=== PATIENT | female | born 1970 | race Caucasian/White ===

== ENCOUNTER 2017-02-09 22:42 | Emergency (ER) | payer SELFPAY ==
--- NOTE | 2017-02-10 03:37 | ED CLINICAL REPORT ---
Clinical Report - Physicians/Mid Levels [facility] [address] [place] [address] 02/09/2017 22:43 Patient: NICOLETTE MENDOSA Time Seen: 23:45; initial patient contact. Arrived- By private vehicle. Historian- patient. HISTORY OF PRESENT ILLNESS Chief Complaint: LOWER EXTREMITY SWELLING. Severity is described as being moderate. It has become recently worse. The quality is noted to be burning. No radiation. This started several weeks ago and is still present (worse worse since since 2 days ago). It was gradual in onset. Symptoms located in the area of the right leg and left leg. The patient has had redness and swelling. She has had difficulty walking. No bladder dysfunction, bowel dysfunction, sensory loss or motor loss. Patient denies an injury. Similar symptoms previously: None. Recent medical care: Not recently seen/assessed. REVIEW OF SYSTEMS No chest pain, difficulty breathing or fever. All systems otherwise negative, except as recorded above. PAST HISTORY ( HTN Edema). Medications: Lasix Oral. Gabapentin Oral. Lisinopril Oral. SOCIAL HISTORY Never smoker. Occasional alcohol use. No drug use. ADDITIONAL NOTES The nursing notes have been reviewed. PHYSICAL EXAM Vital Signs: 02/09/2017 23:50 BP: 126/65. HR: 74. RR: 13. O2 saturation: 95%. Temp: 97.8 F. Pain level now: 8/10. Have been reviewed as normal. Appearance: Alert. Oriented X3. No acute distress. Neck: Normal inspection. No JVD. CVS: Normal heart rate and rhythm. Heart sounds normal. Respiratory: No respiratory distress. Breath sounds normal. Skin: Skin warm and dry. Extremities: Bilateral 2+ pitting edema of the lower extremities involving both lower legs. Neuro: Oriented X 3. LABS, X-RAYS, AND EKG Laboratory Tests: CBC w Diff: (RADHA: 02/10/2017 00:33) ( MsgRcvd 02/10/2017 00:43) Final results Test Result Flag Units (Reference) WHITE BLOOD COUNT 5.2 K/uL (4.5-11.5) RED BLOOD COUNT 3.16 L M/uL (4.00-5.20) HEMOGLOBIN 10.4 L gm/dL (12.0-16.0) HEMATOCRIT 31.0 L % (36.0-46.0) MEAN CELL VOLUME 98 fL (80-100) MEAN CORPUSCULAR HGB 33 pg (26-34) MEAN CORPUSCULAR HGB CONC 34 g/dL (31-37) RED CELL DISTRIBUTION WIDTH 21.6 H % (11.6-14.8) PLATELET COUNT 283 K/uL (150-400) NEUTROPHIL % 60.3 % (50-75) LYMPH % 28.3 % (25-40) MONO % 7.6 % (3-14) EOSINOPHIL % 3.2 % (0-4) BASOPHIL % 0.6 % (0-2) [id number]: (RADHA: 02/10/2017 00:33) ( [facility] 02/10/2017 00:53) Final results Test Result Flag Units (Reference) D-DIMER QUANTITATIVE 0.33 ug/mLFEU (0.27-0.52) The primary value of this quantitative assay relates toits negative predictive value (i.e. exclusion) of pulmonaryembolism/deep vein thrombosis/DIC.Elevated levels of d-dimer may also occur with:, age, cancer, inflammation, liver disease,post-op, infection, hematoma, coronary disease, peripheralarteriopathy, bleeding disorders and thrombolytic treatment.Results should be correlated with other clinical andradiological data.Testing Methodology: Latex Immunoassay BNP: (RADHA: 02/10/2017 00:33) ( [facility] 02/10/2017 01:02) Final results Test Result Flag Units (Reference) B-TYPE NATRIURETIC PEPTIDE 34.7 pg/ml (5-100) CMP: (RADHA: 02/10/2017 00:33) ( [facility] 02/10/2017 00:58) Final results Test Result Flag Units (Reference) GLUCOSE 80 mg/dL (70-110) BUN 8 mg/dL (7-18) CREATININE 0.7 mg/dL (0.6-1.3) Estimated GFR >60 mL/min Estimated GFR- >60 mL/min Note: Persistent reduction over 3 months in eGFR<60 mL/min/1.73 m2 defines CKD. Patients with eGFR values>=60 mL/min/1.73 m2 may also have CKD if evidence ofpersistent proteinuria. Additional information may be foundat www.kidney.org. SODIUM 140 mmol/L (136-145) POTASSIUM 2.8 *L mmol/L (3.5-5.1) CRITICAL RESULTS CALLEDCalled to ELLIOTT CHURCHILL RN 02/10/17 0057Were 2 patient identifiers used? YWas the result read back? Y CHLORIDE 100 mmol/L (98-107) CARBON DIOXIDE 31 mmol/L (21-32) CALCIUM 8.1 L mg/dL (8.5-10.1) TOTAL PROTEIN 6.7 g/dL (6.4-8.2) ALBUMIN 3.2 L g/dL (3.3-5.0) BILIRUBIN, TOTAL 0.4 mg/dL (0.0-1.0) ALKALINE PHOSPHATASE 126 H U/L (46-116) AST (SGOT) 27 U/L (15-37) ALT (SGPT) 27 U/L (12-78) MAGNESIUM 1.9 mg/dL (1.8-2.4) . PROGRESS AND PROCEDURES Disposition: Discharged home in good and improved condition. Condition: good. CLINICAL IMPRESSION Bilateral pedal edema secondary to unknown cause. Hypokalemia INSTRUCTIONS Apply ice. Warnings: CONTROLLED SUBSTANCE WARNINGS. Your Current Medications: CONTINUE TAKING THE FOLLOWING MEDICATIONS: Gabapentin Oral. Lasix Oral. Lisinopril Oral. Prescription Medications: Potassium Chloride 20 mEq: take 1 orally every 24 hours - Dispense twenty (20) No refills. Follow-up: Follow up with your doctor in about two days. Call for an appointment. Blood pressure screening was not performed during this visit because the patient has an active diagnosis of hypertension. (Electronically signed by Jan Cintron Dr. 02/10/2017 5:49)
--- NOTE | 2017-02-10 03:37 | ED CLINICAL REPORT ---
Clinical Report - Physicians/Mid Levels [facility] [address] [place] [address] 02/09/2017 22:43 Patient: NICOLETTE MENDOSA Time Seen: 23:45; initial patient contact. Arrived- By private vehicle. Historian- patient. HISTORY OF PRESENT ILLNESS Chief Complaint: LOWER EXTREMITY SWELLING. Severity is described as being moderate. It has become recently worse. The quality is noted to be burning. No radiation. This started several weeks ago and is still present (worse worse since since 2 days ago). It was gradual in onset. Symptoms located in the area of the right leg and left leg. The patient has had redness and swelling. She has had difficulty walking. No bladder dysfunction, bowel dysfunction, sensory loss or motor loss. Patient denies an injury. Similar symptoms previously: None. Recent medical care: Not recently seen/assessed. REVIEW OF SYSTEMS No chest pain, difficulty breathing or fever. All systems otherwise negative, except as recorded above. PAST HISTORY ( HTN Edema). Medications: Lasix Oral. Gabapentin Oral. Lisinopril Oral. SOCIAL HISTORY Never smoker. Occasional alcohol use. No drug use. ADDITIONAL NOTES The nursing notes have been reviewed. PHYSICAL EXAM Vital Signs: 02/09/2017 23:50 BP: 126/65. HR: 74. RR: 13. O2 saturation: 95%. Temp: 97.8 F. Pain level now: 8/10. Have been reviewed as normal. Appearance: Alert. Oriented X3. No acute distress. Neck: Normal inspection. No JVD. CVS: Normal heart rate and rhythm. Heart sounds normal. Respiratory: No respiratory distress. Breath sounds normal. Skin: Skin warm and dry. Extremities: Bilateral 2+ pitting edema of the lower extremities involving both lower legs. Neuro: Oriented X 3. LABS, X-RAYS, AND EKG Laboratory Tests: CBC w Diff: (RADHA: 02/10/2017 00:33) ( MsgRcvd 02/10/2017 00:43) Final results Test Result Flag Units (Reference) WHITE BLOOD COUNT 5.2 K/uL (4.5-11.5) RED BLOOD COUNT 3.16 L M/uL (4.00-5.20) HEMOGLOBIN 10.4 L gm/dL (12.0-16.0) HEMATOCRIT 31.0 L % (36.0-46.0) MEAN CELL VOLUME 98 fL (80-100) MEAN CORPUSCULAR HGB 33 pg (26-34) MEAN CORPUSCULAR HGB CONC 34 g/dL (31-37) RED CELL DISTRIBUTION WIDTH 21.6 H % (11.6-14.8) PLATELET COUNT 283 K/uL (150-400) NEUTROPHIL % 60.3 % (50-75) LYMPH % 28.3 % (25-40) MONO % 7.6 % (3-14) EOSINOPHIL % 3.2 % (0-4) BASOPHIL % 0.6 % (0-2) [id number]: (RADHA: 02/10/2017 00:33) ( [facility] 02/10/2017 00:53) Final results Test Result Flag Units (Reference) D-DIMER QUANTITATIVE 0.33 ug/mLFEU (0.27-0.52) The primary value of this quantitative assay relates toits negative predictive value (i.e. exclusion) of pulmonaryembolism/deep vein thrombosis/DIC.Elevated levels of d-dimer may also occur with:, age, cancer, inflammation, liver disease,post-op, infection, hematoma, coronary disease, peripheralarteriopathy, bleeding disorders and thrombolytic treatment.Results should be correlated with other clinical andradiological data.Testing Methodology: Latex Immunoassay BNP: (RADHA: 02/10/2017 00:33) ( [facility] 02/10/2017 01:02) Final results Test Result Flag Units (Reference) B-TYPE NATRIURETIC PEPTIDE 34.7 pg/ml (5-100) CMP: (RADHA: 02/10/2017 00:33) ( [facility] 02/10/2017 00:58) Final results Test Result Flag Units (Reference) GLUCOSE 80 mg/dL (70-110) BUN 8 mg/dL (7-18) CREATININE 0.7 mg/dL (0.6-1.3) Estimated GFR >60 mL/min Estimated GFR- >60 mL/min Note: Persistent reduction over 3 months in eGFR<60 mL/min/1.73 m2 defines CKD. Patients with eGFR values>=60 mL/min/1.73 m2 may also have CKD if evidence ofpersistent proteinuria. Additional information may be foundat www.kidney.org. SODIUM 140 mmol/L (136-145) POTASSIUM 2.8 *L mmol/L (3.5-5.1) CRITICAL RESULTS CALLEDCalled to ELLIOTT CHURCHILL RN 02/10/17 0057Were 2 patient identifiers used? YWas the result read back? Y CHLORIDE 100 mmol/L (98-107) CARBON DIOXIDE 31 mmol/L (21-32) CALCIUM 8.1 L mg/dL (8.5-10.1) TOTAL PROTEIN 6.7 g/dL (6.4-8.2) ALBUMIN 3.2 L g/dL (3.3-5.0) BILIRUBIN, TOTAL 0.4 mg/dL (0.0-1.0) ALKALINE PHOSPHATASE 126 H U/L (46-116) AST (SGOT) 27 U/L (15-37) ALT (SGPT) 27 U/L (12-78) MAGNESIUM 1.9 mg/dL (1.8-2.4) . PROGRESS AND PROCEDURES Disposition: Discharged home in good and improved condition. Condition: good. CLINICAL IMPRESSION Bilateral pedal edema secondary to unknown cause. Hypokalemia INSTRUCTIONS Apply ice. Warnings: CONTROLLED SUBSTANCE WARNINGS. Your Current Medications: CONTINUE TAKING THE FOLLOWING MEDICATIONS: Gabapentin Oral. Lasix Oral. Lisinopril Oral. Prescription Medications: Potassium Chloride 20 mEq: take 1 orally every 24 hours - Dispense twenty (20) No refills. Follow-up: Follow up with your doctor in about two days. Call for an appointment. Blood pressure screening was not performed during this visit because the patient has an active diagnosis of hypertension. (Electronically signed by Jan Cintron Dr. 02/10/2017 5:49)
--- NOTE | 2017-02-10 03:37 | ED ORDER SUMMARY ---
..... Patient: NICOLETTE MENDOSA OrderSheet [facility] VisitID: [id number] [place] [address] 47y, F Registration Date/Time: 02/09/2017 ORDER SHEET Weight: 104.3 kg (stated) Allergies: None GENERAL ORDERS: Chest 1V Urgent (00:02/10/2017 Emory Lopez) (Ack 0:17 CHagerty ER Watch Mechanic) (0:57 RFay) CBC w Diff Urgent (00:02/10/2017 Emory Lopez) (Ack 0:17 CHagerty ER Watch Mechanic) (Collected 0:37 RMarsden R.N.) (1:04 CHagerty ER Watch Mechanic) CMP Urgent (00:02/10/2017 Emory Lopez) (Ack 0:17 CHagerty ER Watch Mechanic) (Collected 0:37 RMarsden R.N.) (1:04 CHagerty ER Watch Mechanic) BNP Urgent (00:02/10/2017 Emory Lopez) (Ack 0:17 CHagerty ER Watch Mechanic) (Collected 0:37 RMarsden R.N.) (1:04 CHagerty ER Watch Mechanic) D-Dimer Urgent (00:02/10/2017 Emory Lopez) (Ack 0:17 CHagerty ER Watch Mechanic) (Collected 0:37 RMarsden R.N.) (1:04 CHagerty ER Watch Mechanic) MEDICATION ORDERS: Potassium Chloride PO 20 meq (NOW) (01:36 02/10/2017 Emory Lopez) (Ack 1:42 RMarsden R.N.) (2:24 RMarsden R.N.) IV FLUIDS: Toradol IV 30 mg (NOW) (00:15 02/10/2017 Eomry Lopez) (Ack 0:17 RMarsden R.N.) (0:37 RMarsden R.N.) IV Saline Lock (00:02/10/2017 Emory Lopez) (Ack 0:17 RMarsden R.N.) (0:36 RMarsden R.N.) Potassium Chloride IV 20 meq/100mL (HIGH ALERT MEDICATION, NOW, Run no faster than 10 mEq/hr) (01:36 02/10/2017 Emory Lopez) (Ack 1:42 RMarstierney R.N.) (2:24 RMdane R.N.) ORDER SHEET NOTES: [Electronically signed by Jan Cintron Dr. (05:49 02/10/2017)] [Electronically signed by Radha Gallardo R.N. (06:22 02/10/2017)] [Electronically locked/signed by Radha Gallardo R.N. (06:22 02/10/2017)]
--- NOTE | 2017-02-10 03:37 | ED NURSING NOTES ---
Clinical Report - Nurses [facility] [address] [place] [address] 02/09/2017 22:43 Patient: NICOLETTE MENDOSA TRIAGE Triage time 23:41. Acuity: LEVEL 3. Chief Complaint: RIGHT LOWER EXTREMITY PAIN, SWELLING and REDNESS. LEFT LOWER EXTREMITY PAIN, SWELLING and REDNESS. 23:55 02/09/17. Alert. No acute distress. SEPSIS SCREEN: Sepsis Screen. Negative (no infection suspected/documented). MIKE COMA SCORE: [place] Coma Scale: 15- eyes open spontaneously (4); best verbal response- oriented x 4 (5); best motor response- obeys commands (6). --23:55 Radha Gallardo R.N. 23:50 02/09/17. BP: 126/65. HR: 74. RR: 13. O2 saturation: 95%. Temp: 97.8 F. Pain level now: 03/13. --23:55 Radha Gallardo R.N. Weight: 104.3 kg stated. Height/Length: 65 inches Per Patient. BMI: 38.3. --23:55 Radha Gallardo R.N. Medications Lisinopril Oral. --03:[address] Gabapentin Oral. --03:[address] Lasix Oral. --03:[address] Allergies None. --06:22 Radha Gallardo R.N. History Historian: patient. Primary physician ([facility]. PCP told pt to come to the hospital two days ago). This occurred (two days ago). ( Patient states she has had leg swelling "for a long time," but the pain and swelling has gotten worse in the past two days. She states she has been on furosemide to pull the water off, and recently increased her dosage with no improvement.). She has had trouble walking. PAST MEDICAL HX: Tetanus status: up-to-date. Immunizations: up-to-date. Denies current . SOCIAL HX: Never smoker. Occasional alcohol use. No drug use. FALL RISK ASSESSMENT: Fall risk assessment completed. No fall risk identified. NUTRITIONAL RISK ASSESSMENT: The nutritional risk assessment revealed no deficiencies. FUNCTIONAL ASSESSMENT: Functional assessment: no impairments noted. LEARNING NEEDS ASSESSMENT: The learning needs assessment revealed no barriers. SKIN INTEGRITY ASSESSMENT: Skin integrity risk assessment completed. No skin integrity risk identified. --23:55 Rahda Gallardo R.N. Interventions ID band on patient. To treatment room. --23:55 Radha Gallardo R.N. PHYSICAL ASSESSMENT 23:57 02/09/17. Ambulatory to room. GENERAL / NEURO / PSYCH: Oriented X 4. Alert. Appears in no acute distress. EXTREMITIES: Clear drainage on the extremities (L Leg). Bilateral 2+ non-pitting edema of the lower extremities involving both lower legs. Extremity pulses are within normal limits. Extremities exhibit normal ROM. Right leg: tenderness, swelling and erythema. Left leg: tenderness, swelling and erythema. ( limping due to pain). SKIN: Skin intact. Skin is warm. --23:57 Radha Gallardo R.N. NURSING PROGRESS NOTES 23:57 02/09/17. Two patient identifiers checked. Call light placed in reach. Side rails up x 1. Bed placed in lowest position. Brakes of bed on. Patient ready for evaluation- chart flagged and notification provided. --23:57 Radha Gallardo R.N. 00:31 02/10/2017 Site #1 started via IV in the right antecubital space with an 20g angiocath; one attempt. Blood drawn: rainbow set and pediatric tubes. Labeled in the presence of the patient and sent to the lab. Saline lock flushed with 5 mL saline. --00:36 Radha Gallardo R.N. 00:37 02/10/2017 Toradol IVP 30 mg given over 2 minute(s) via site #1. Allergies verified and confirmed 5 rights. IV patency established. IV site checked: no pain, redness, or swelling. IV flushed thoroughly pre- and post-medication administration. IVP given by RN. --00:37 Radah Gallardo R.N. 00:59. Critical value relayed to ED by [employer] tech. Critical value received by Luigi ABBASI. K: 2.8. Critical value read back. Verified lab result and patient ID. ED physician notifed of critical value. --00:59 Luigi Gomez R.N. 02:09 02/10/2017 Potassium Chloride (Potassium Chloride ER) PO Tablets 20 meq given. Allergies verified and confirmed 5 rights. --02:24 Radha Gallardo R.N. 02:19 02/10/2017 Started 20 meq of Potassium Chloride (Potassium Chloride) IVPB in bag #1 100 mL; at 40 mL/hr over 2.5 hour(s) via site #1 via IV pump. Allergies verified and confirmed 5 rights. IV patency established. IV site checked: no pain, redness, or swelling. IV flushed thoroughly pre- and post-medication administration. Completed per protocol. --02:24 Radha Gallardo R.N. 03:06 Patient assisted to restroom and back to bed. --03:10 Luigi Gomez R.N. Cardiac rhythm: sinus rhythm. The patient is calm and resting quietly. GENERAL / NEURO / PSYCH: Alert. Oriented X 4. RESPIRATORY: No respiratory distress. SKIN: Skin is warm and dry. --03:11 Luigi Gomez R.N. 03:11 02/10/17. BP: 106/61. HR: 80. RR: 16. O2 saturation: 96%. --03:11 Luigi Gomez R.N. ( patient given phone [phone]). --05:00 Radha Gallardo R.N. DISPOSITION / DISCHARGE 05:12. No learning barriers present. Discharge instructions provided and reviewed with the patient. Reviewed warnings. Reviewed medication(s). Treatments reviewed. Reviewed referrals. Patient verbalized understanding. Written instructions provided in Mongolian. The patient was discharged home. She left the Emergency Department ambulatory and via private vehicle. Spouse driving. --06:21 Radha Gallardo R.N. 04:50 02/10/17. BP: 107/65. HR: 68. RR: 11. O2 saturation: 97%. Temp: deferred. Pain level now: 03/13. --06:21 Radha Gallardo R.N. Locked/Released at 02/10/2017 6:22 by Radha Gallardo R.N.
--- NOTE | 2017-02-10 03:37 | ED ORDER SUMMARY ---
..... Patient: NICOLETTE MENDOSA OrderSheet [facility] VisitID: [id number] [place] [address] 47y, F Registration Date/Time: 02/09/2017 ORDER SHEET Weight: 104.3 kg (stated) Allergies: None GENERAL ORDERS: Chest 1V Urgent (00:02/10/2017 Emory Lopez) (Ack 0:17 CHagerty ER Industrial Cleaner) (0:57 RFay) CBC w Diff Urgent (00:02/10/2017 Eomry Lopez) (Ack 0:17 CHagerty ER Industrial Cleaner) (Collected 0:37 RMarsden R.N.) (1:04 CHagerty ER Industrial Cleaner) CMP Urgent (00:02/10/2017 Emory Lopez) (Ack 0:17 CHagerty ER Industrial Cleaner) (Collected 0:37 RMarsden R.N.) (1:04 CHagerty ER Industrial Cleaner) BNP Urgent (00:02/10/2017 Emory Lopez) (Ack 0:17 CHagerty ER Industrial Cleaner) (Collected 0:37 RMarsden R.N.) (1:04 CHagerty ER Industrial Cleaner) D-Dimer Urgent (00:02/10/2017 Emory Lopez) (Ack 0:17 CHagerty ER Industrial Cleaner) (Collected 0:37 RMarsden R.N.) (1:04 CHagerty ER Industrial Cleaner) MEDICATION ORDERS: Potassium Chloride PO 20 meq (NOW) (01:36 02/10/2017 Emory Lopez) (Ack 1:42 RMarsden R.N.) (2:24 RMarsden R.N.) IV FLUIDS: Toradol IV 30 mg (NOW) (00:15 02/10/2017 Emory Lopez) (Ack 0:17 RMarsden R.N.) (0:37 RMarsden R.N.) IV Saline Lock (00:02/10/2017 Emory Lopez) (Ack 0:17 RMarsden R.N.) (0:36 RMarsden R.N.) Potassium Chloride IV 20 meq/100mL (HIGH ALERT MEDICATION, NOW, Run no faster than 10 mEq/hr) (01:36 02/10/2017 Emory Lopez) (Ack 1:42 RMarstierney R.N.) (2:24 RMdane R.N.) ORDER SHEET NOTES: [Electronically signed by Jan Cintron Dr. (05:49 02/10/2017)] [Electronically signed by Radha Gallardo R.N. (06:22 02/10/2017)] [Electronically locked/signed by Radha Gallardo R.N. (06:22 02/10/2017)]
--- NOTE | 2017-02-10 03:37 | ED NURSING NOTES ---
Clinical Report - Nurses [facility] [address] [place] [address] 02/09/2017 22:43 Patient: NICOLETTE MENDOSA TRIAGE Triage time 23:41. Acuity: LEVEL 3. Chief Complaint: RIGHT LOWER EXTREMITY PAIN, SWELLING and REDNESS. LEFT LOWER EXTREMITY PAIN, SWELLING and REDNESS. 23:55 02/09/17. Alert. No acute distress. SEPSIS SCREEN: Sepsis Screen. Negative (no infection suspected/documented). MIKE COMA SCORE: [place] Coma Scale: 15- eyes open spontaneously (4); best verbal response- oriented x 4 (5); best motor response- obeys commands (6). --23:55 Radha aGllardo R.N. 23:50 02/09/17. BP: 126/65. HR: 74. RR: 13. O2 saturation: 95%. Temp: 97.8 F. Pain level now: 03/13. --23:55 Radha Gallardo R.N. Weight: 104.3 kg stated. Height/Length: 65 inches Per Patient. BMI: 38.3. --23:55 Radha Gallardo R.N. Medications Lisinopril Oral. --03:[address] Gabapentin Oral. --03:[address] Lasix Oral. --03:[address] Allergies None. --06:22 Radha Gallardo R.N. History Historian: patient. Primary physician ([facility]. PCP told pt to come to the hospital two days ago). This occurred (two days ago). ( Patient states she has had leg swelling "for a long time," but the pain and swelling has gotten worse in the past two days. She states she has been on furosemide to pull the water off, and recently increased her dosage with no improvement.). She has had trouble walking. PAST MEDICAL HX: Tetanus status: up-to-date. Immunizations: up-to-date. Denies current . SOCIAL HX: Never smoker. Occasional alcohol use. No drug use. FALL RISK ASSESSMENT: Fall risk assessment completed. No fall risk identified. NUTRITIONAL RISK ASSESSMENT: The nutritional risk assessment revealed no deficiencies. FUNCTIONAL ASSESSMENT: Functional assessment: no impairments noted. LEARNING NEEDS ASSESSMENT: The learning needs assessment revealed no barriers. SKIN INTEGRITY ASSESSMENT: Skin integrity risk assessment completed. No skin integrity risk identified. --23:55 Radha Gallardo R.N. Interventions ID band on patient. To treatment room. --23:55 Radha Gallardo R.N. PHYSICAL ASSESSMENT 23:57 02/09/17. Ambulatory to room. GENERAL / NEURO / PSYCH: Oriented X 4. Alert. Appears in no acute distress. EXTREMITIES: Clear drainage on the extremities (L Leg). Bilateral 2+ non-pitting edema of the lower extremities involving both lower legs. Extremity pulses are within normal limits. Extremities exhibit normal ROM. Right leg: tenderness, swelling and erythema. Left leg: tenderness, swelling and erythema. ( limping due to pain). SKIN: Skin intact. Skin is warm. --23:57 Radah Gallardo R.N. NURSING PROGRESS NOTES 23:57 02/09/17. Two patient identifiers checked. Call light placed in reach. Side rails up x 1. Bed placed in lowest position. Brakes of bed on. Patient ready for evaluation- chart flagged and notification provided. --23:57 Radha Gallardo R.N. 00:31 02/10/2017 Site #1 started via IV in the right antecubital space with an 20g angiocath; one attempt. Blood drawn: rainbow set and pediatric tubes. Labeled in the presence of the patient and sent to the lab. Saline lock flushed with 5 mL saline. --00:36 Radha Gallardo R.N. 00:37 02/10/2017 Toradol IVP 30 mg given over 2 minute(s) via site #1. Allergies verified and confirmed 5 rights. IV patency established. IV site checked: no pain, redness, or swelling. IV flushed thoroughly pre- and post-medication administration. IVP given by RN. --00:37 Radha Gallardo R.N. 00:59. Critical value relayed to ED by [employer] tech. Critical value received by Luigi ABBASI. K: 2.8. Critical value read back. Verified lab result and patient ID. ED physician notifed of critical value. --00:59 Luigi Gomez R.N. 02:09 02/10/2017 Potassium Chloride (Potassium Chloride ER) PO Tablets 20 meq given. Allergies verified and confirmed 5 rights. --02:24 Radha Gallardo R.N. 02:19 02/10/2017 Started 20 meq of Potassium Chloride (Potassium Chloride) IVPB in bag #1 100 mL; at 40 mL/hr over 2.5 hour(s) via site #1 via IV pump. Allergies verified and confirmed 5 rights. IV patency established. IV site checked: no pain, redness, or swelling. IV flushed thoroughly pre- and post-medication administration. Completed per protocol. --02:24 Radha Gallardo R.N. 03:06 Patient assisted to restroom and back to bed. --03:10 Luigi Gomez R.N. Cardiac rhythm: sinus rhythm. The patient is calm and resting quietly. GENERAL / NEURO / PSYCH: Alert. Oriented X 4. RESPIRATORY: No respiratory distress. SKIN: Skin is warm and dry. --03:11 Luigi Gomez R.N. 03:11 02/10/17. BP: 106/61. HR: 80. RR: 16. O2 saturation: 96%. --03:11 Luigi Gomez R.N. ( patient given phone [phone]). --05:00 Radha Gallardo R.N. DISPOSITION / DISCHARGE 05:12. No learning barriers present. Discharge instructions provided and reviewed with the patient. Reviewed warnings. Reviewed medication(s). Treatments reviewed. Reviewed referrals. Patient verbalized understanding. Written instructions provided in Frisian. The patient was discharged home. She left the Emergency Department ambulatory and via private vehicle. Spouse driving. --06:21 Radha Gallardo R.N. 04:50 02/10/17. BP: 107/65. HR: 68. RR: 11. O2 saturation: 97%. Temp: deferred. Pain level now: 03/13. --06:21 Radha Gallardo R.N. Locked/Released at 02/10/2017 6:22 by Radha Gallardo R.N.
--- NOTE | 2017-02-10 06:22 | ED MED RECONCILIATION SUMMARY ---
Patient: NICOLETTE MENDOSA Medication Reconciliation Report [facility] VisitID: [id number] [address] [place] [address] 47y, F Registration Date/Time: 02/09/2017 Weight: 104.3 kg Height/Length: 65 in. BMI: 38.3 ALLERGIES: None The patient's Home Medications are listed below: CONTINUE TAKING THE FOLLOWING MEDICATIONS: Gabapentin Oral Lasix Oral Lisinopril Oral The source(s) of the original Home Medication information: Not obtained. The following Medications were given to the patient in the Emergency Department: Toradol [IVP] IVP 30 mg, administered: 02/10/2017 12:37:00 AM Potassium Chloride [IVPB] IVPB bolus 0, then 20 meq 40 mL/hr, administered: 02/10/2017 2:19:00 AM Potassium Chloride [PO] PO 20 meq, administered: 02/10/2017 2:09:00 AM The following Medications were prescribed to the patient: Potassium Chloride 20 mEq: take 1 orally every 24 hours - Dispense twenty (20) No refills. -- Jan Cintron Dr.
--- NOTE | 2017-02-10 06:22 | ED MED RECONCILIATION SUMMARY ---
Patient: NICOLETTE MENDOSA Medication Reconciliation Report [facility] VisitID: [id number] [address] [place] [address] 47y, F Registration Date/Time: 02/09/2017 Weight: 104.3 kg Height/Length: 65 in. BMI: 38.3 ALLERGIES: None The patient's Home Medications are listed below: CONTINUE TAKING THE FOLLOWING MEDICATIONS: Gabapentin Oral Lasix Oral Lisinopril Oral The source(s) of the original Home Medication information: Not obtained. The following Medications were given to the patient in the Emergency Department: Toradol [IVP] IVP 30 mg, administered: 02/10/2017 12:37:00 AM Potassium Chloride [IVPB] IVPB bolus 0, then 20 meq 40 mL/hr, administered: 02/10/2017 2:19:00 AM Potassium Chloride [PO] PO 20 meq, administered: 02/10/2017 2:09:00 AM The following Medications were prescribed to the patient: Potassium Chloride 20 mEq: take 1 orally every 24 hours - Dispense twenty (20) No refills. -- Jan Cintron Dr.
--- NOTE | 2017-02-10 06:22 | ED DISCHARGE INSTRUCTIONS ---
Patient: NICOLETTE MENDOSA General Instructions [facility] VisitID: [id number] [place] [address] 47y, F Registration Date/Time: 02/09/2017 Bilateral pedal edema secondary to unknown cause. Hypokalemia INSTRUCTIONS Apply ice. Warnings: CONTROLLED SUBSTANCE WARNINGS. Your Current Medications: CONTINUE TAKING THE FOLLOWING MEDICATIONS: Gabapentin Oral. Lasix Oral. Lisinopril Oral. Prescription Medications: Potassium Chloride 20 mEq: take 1 orally every 24 hours - Dispense twenty (20) No refills. Follow-up: Follow up with your doctor in about two days. Call for an appointment. Blood pressure screening was not performed during this visit because the patient has an active diagnosis of hypertension. ADDITIONAL INFORMATION Leg Swelling [Bilateral] Swelling of the feet, ankles and legs is called "Edema." It is due to excess fluid collecting in the tissues. Because of gravity, excess fluid in the body settles in the lowest part. This is why the legs and feet are most affected. Some of the causes for edema include: Disease of the heart (congestive heart failure or "CHF") Prolonged standing or sitting (with the legs in the down position) Infection of the feet or legs Venous Insufficiency (congestion of blood in the veins of the legs) Varicose veins (dilated veins of the lower leg) Garters, or clothing that constricts your legs. (These will cause venous congestion by restricting blood flow.) Some medicines (hormones such as control pills; some blood pressure medicines, such as calcium channel blockers; steroids; some antidepressants such as MAO inhibitors and tricyclics.) Menstrual periods with fluid retention Renal insufficiency (a form of kidney disease) Liver failure (Some swelling is normal, but a sudden increase in leg swelling or weight gain can be a sign of a dangerous complication of ). Medical treatment will depend on the cause of your swelling. Diuretics (water pills) may be prescribed to remove excess fluid. Home Care: Do not wear garments that constrict your legs (such as garters). Elevate your legs while lying or sitting. If infection, injury or recent surgery is the cause for your swelling, stay off your legs as much as possible until symptoms improve. If your doctor says that your leg swelling is caused by venous insufficiency or varicose veins, do not sit or manager nursing one place for long periods of time. Take breaks and walk about every few hours. Brisk walking is a good exercise and helps circulate the congested blood from your leg. Talk to your doctor about the use of support stockings to prevent daytime leg swelling. If your doctor says that heart disease is the cause of your leg swelling, follow a low-salt diet to prevent excess fluid retention. Follow Up with your doctor or as advised by our staff. Get Prompt Medical Attention if any of the following occur: New or worsening shortness of breath or chest pain Increasing swelling in both legs or ankles Swelling of the abdomen Redness, warmth or swelling in one leg Fever of 100.4F (38C) or higher, or as directed by your healthcare provider Yellow color to the skin or eyes Rapid, unexplained weight gain Hypokalemia Hypokalemia means a low level of potassium in the blood. This most often occurs in patients who take diuretics (water pills). It can also occur due to severe vomiting or diarrhea. A mild case usually causes no symptoms. It is only found with blood testing. More severe potassium loss causes generalized weakness, muscle or abdominal cramping, heart palpitations (rapid or irregular heartbeats) and low blood pressure. Home Care: 1) Take any potassium supplements prescribed. 2) Eat foods rich in potassium. The highest amount is found in artichoke, baked potatoes, spinach, cantaloupe, honeydew melon, cod, halibut, salmon, and scallops. White, red, or russell beans are also very good sources. A modest amount is found in orange juice, bananas, carrots, and tomato juice. 3) Certain types of diuretics (water pills), such as Lasix (furosemide), require that you take potassium supplements for as long as you take the diuretic pills. If you are taking a diuretic, discuss the need for potassium supplements with your doctor. Follow Up with your doctor for a repeat blood test within the next week or as advised by our staff. Get Prompt Medical Attention if any of the following occur: -- Increased weakness -- Feeling dizzy -- Irregular heartbeat, extra beats or very fast heart rate -- Fainting spell You have been given the following additional information: Peripheral Edema, Bilateral Hypokalemia (Electronically signed by Jan Cintron Dr. 02/10/2017 5:49)
--- NOTE | 2017-02-10 06:22 | ED MAR SUMMARY ---
..... Medication Administration Record [facility] [address] [place] [address] Patient: NICOLETTE MENDOSA Visit ID: [id number] 47y, F Weight: 104.3 kg Height/Length: 65 in BMI: 38.3 ALLERGIES: None Given 00:37 02/10/2017 Radha Gallardo RSaleemNSaleem Medication Administered: TORADOL [IVP], Dose: 30 mg IVP over 2 minute(s), Site: #1 right AC. Medication Ordered: Toradol IV 30 mg (NOW). Given 02:09 02/10/2017 Radha Gallardo RSaleemN. Medication Administered: POTASSIUM CHLORIDE [PO] (POTASSIUM CHLORIDE ER), Dose: 20 meq Tablets PO. Medication Ordered: Potassium Chloride PO 20 meq (NOW). Start 02:19 02/10/2017 Radha Gallardo, R.N. Medication Administered: POTASSIUM CHLORIDE [IVPB] (POTASSIUM CHLORIDE), Dose: 20 meq IVPB over 2.5 hour(s), Rate: 40 mL/hr, Dispensed: 100 mL bag, Site: #1 right AC. Medication Ordered: Potassium Chloride IV 20 meq/100mL (HIGH ALERT MEDICATION, NOW, Run no faster than 10 mEq/hr).
--- NOTE | 2017-02-10 06:22 | ED MAR SUMMARY ---
..... Medication Administration Record [facility] [address] [place] [address] Patient: NICOLETTE MENDOSA Visit ID: [id number] 47y, F Weight: 104.3 kg Height/Length: 65 in BMI: 38.3 ALLERGIES: None Given 00:37 02/10/2017 Radha Gallardo RSaleemNSaleem Medication Administered: TORADOL [IVP], Dose: 30 mg IVP over 2 minute(s), Site: #1 right AC. Medication Ordered: Toradol IV 30 mg (NOW). Given 02:09 02/10/2017 Radha Gallardo RSaleemN. Medication Administered: POTASSIUM CHLORIDE [PO] (POTASSIUM CHLORIDE ER), Dose: 20 meq Tablets PO. Medication Ordered: Potassium Chloride PO 20 meq (NOW). Start 02:19 02/10/2017 Radha Gallardo, R.N. Medication Administered: POTASSIUM CHLORIDE [IVPB] (POTASSIUM CHLORIDE), Dose: 20 meq IVPB over 2.5 hour(s), Rate: 40 mL/hr, Dispensed: 100 mL bag, Site: #1 right AC. Medication Ordered: Potassium Chloride IV 20 meq/100mL (HIGH ALERT MEDICATION, NOW, Run no faster than 10 mEq/hr).
--- NOTE | 2017-02-10 07:03 | DIAGNOSTIC IMAGING REPORT ---
PROCEDURE: XR CHEST 1 VIEW INDICATION: SHORTNESS OF BREATH TECHNIQUE: Single view chest. 0056 hours COMPARISON: None FINDINGS: Normal heart size. Slight cephalization and prominence of central venous structures. Minor left base plate-like atelectasis. Otherwise clear lungs. No effusion or pneumothorax. Intact osseous structures. IMPRESSION: 1. Mild prominence of central venous structures suggestive of volume overload. No evidence of interstitial or pulmonary edema.
== END 2017-02-10 05:12 | disposition home or self-care (01) ==
LOC: ED SRH 22:42
DX: R60.0 Localized edema (principal); E87.6 Hypokalemia; I10 Essential (primary) hypertension; Z79.899 Other long term (current) drug therapy
CPT/HCPCS: 90100; 91320; 91556; 92720; 95059